=== PATIENT | female | born 1945 | race Caucasian/White ===

== ENCOUNTER 2017-07-31 14:19 | Inpatient (IN) | payer OTHER, MEDICARE ==
[~2017-07-31] VITALS: Ht 160 cm; Wt 59.4 kg
[2017-07-31] MEDS ORDERED: InsuLIN R (HUMAN) 100 UNITS in SODIUM CHL 0.9% 99 ML IV SCH ×9 (15:23→17:21)
[2017-07-31] MEDS: D5W/SOD CHL 0.45%/KCL 20MEQ 1,000 ML IV SCH ×4 (15:23→22:03)
[2017-07-31] MEDS ORDERED: POTASSIUM CHL 20MEQ/50ML 50 ML IV PRN (15:30)
[2017-07-31] MEDS ORDERED: POTASSIUM CHL 10MEQ/100ML 300 ML IV PRN (15:30)
[2017-07-31] MEDS ORDERED: POTASSIUM CHL 20MEQ/50ML 100 ML IV PRN (15:30)
[2017-07-31] MEDS ORDERED: InsuLIN REG 1unit/0.01ml Soln (100units/ml) SC PRN (15:30)
[2017-07-31] MEDS ORDERED: MAGNESIUM SULFATE 1GM/100ML 200 ML IV ONE (15:30)
[2017-07-31] MEDS: SODIUM CHLORIDE 0.9% 1,000 ML IV SCH ×3 (15:43→23:21)
[2017-07-31 16:27] LABS: Albumin 4.5 g/dL (3.4-5.0); Bilirubin, Total 0.4 mg/dL (0.2-1.0); Calcium 8.8 mg/dL (8.5-10.1); Potassium 4.6 mmol/L (3.5-5.1); Total Protein 7.6 g/dL (6.4-8.2)
[2017-07-31] MEDS ORDERED: ACCU-CHEK COMFORT CURVE STRIP VI SCH ×2 (16:30→18:00)
[2017-07-31] MEDS ORDERED: MET50T PO (16:36)
[2017-07-31] MEDS ORDERED: LOSA25TA9 PO (16:36)
[2017-07-31] MEDS ORDERED: SIMV-8 PO (16:36)
[2017-07-31] MEDS ORDERED: METF-370 PO (16:36)
[2017-07-31] MEDS ORDERED: LEVO137T3 PO (16:36)
[2017-07-31] MEDS ORDERED: OMEP20CA74 PO (16:37)
[2017-07-31] MEDS ORDERED: ASPI-231 PO (16:37)
[2017-07-31 16:54] LABS: Urine Bacteria FEW /hpf (None Seen); Urine Blood TRACE /uL (Negative); Urine Specific Gravity 1.022 (1.001-1.035); Urine WBC 1 /hpf (0 - 5)
[2017-07-31] MEDS ORDERED: InsuLIN REG 1unit/0.01ml Soln (100units/ml) SC SCH ×4 (17:00→22:00)
[2017-07-31] MEDS: SOD CHL 0.9%/ KCL 20MEQ 1,000 ML IV SCH ×2 (17:12→22:03)
[2017-07-31] MEDS ORDERED: ONDANSETRON HCL 4 MG/2 ML VIAL IV PRN (17:30)
[2017-07-31] MEDS ORDERED: DEXTROSE (50%) 50ML SYRG IV PRN (17:30)
[2017-07-31] MEDS ORDERED: NITROGLYCERIN 0.4 MG SL TAB SL PRN (17:30)
[2017-07-31] MEDS ORDERED: MORPHINE SULFATE 10 MG/ML INJ 1ML SDV IV PRN (17:30)
[2017-07-31] MEDS ORDERED: PANTOPRAZOLE 40 MG/10 ML VIAL IV ONE (17:30)
[2017-07-31 17:56] LABS: Hematocrit 48.5 % (36.0-46.0); Hemoglobin 14.8 g/dL (12.2-16.2); Mean Corpuscular Hemoglobin 28.1 pg (28.0-32.0); Mean Corpuscular Hgb Conc. 30.4 g/dL (32.0-36.0); Mean Corpuscular Volume 92.5 fL (80.0-100.0); Red Blood Cells 5.24 10^6/uL (4.0-5.20); Red Cell Distribution Width 15.4 % (11.8-14.3)
[2017-07-31 17:57] LABS: Platelet Count (auto) 597 10^3/uL (140-450)
[2017-07-31 17:58] LABS: Band Neutrophils % (manual) 0; Basophils % (manual) 0 (0.0-2.0); Blast Cells 0; Eosinophils % (manual) 0 (0-7); Metamyelocytes % 0; Myelocytes % 0; Promyelocytes % 0; Reactive Lymphocytes 0
[2017-07-31] MEDS ORDERED: SODIUM BICARBONATE 8.4 % INJ 50ML VIAL IV ONE ×3 (18:03→22:15)
[2017-07-31] MEDS: ACCU-CHEK COMFORT CURVE STRIP VI SCH ×4 (18:11→22:45)
[2017-07-31] MEDS ORDERED: SODIUM BICARBONATE 50ML VIAL 50 ML in SOD CHL 0.45% 1,000 ML IV ONE (18:30)
[2017-07-31] MEDS ORDERED: SODIUM CHLORIDE 0.9% 1,000 ML IV SCH ×3 (19:23→21:23)
[2017-07-31 20:19] LABS: BUN/Creatinine Ratio 15.2; Calcium 7.7 mg/dL (8.5-10.1); Potassium 4.4 mmol/L (3.5-5.1)
[2017-07-31] MEDS: InsuLIN R (HUMAN) 100 UNITS in SODIUM CHL 0.9% 99 ML IV SCH ×2 (20:22→22:30)
[2017-07-31 20:35] LABS: Lymphocytes % (manual) 15 (10.0-50.0); Monocytes % (manual) 10 (0-12)
[2017-07-31] MEDS: METOPROLOL TARTRATE 25 MG TAB PO SCH (22:00)
[2017-07-31] MEDS ORDERED: POTASSIUM CHL 10MEQ/100ML 100 ML IV PRN (23:30)
[2017-08-01] MEDS: InsuLIN R (HUMAN) 100 UNITS in SODIUM CHL 0.9% 99 ML IV SCH ×4 (00:54→07:04)
[2017-08-01] MEDS: ACCU-CHEK COMFORT CURVE STRIP VI SCH ×16 (01:30→22:36)
[2017-08-01] MEDS: D5W/SOD CHL 0.45%/KCL 20MEQ 1,000 ML IV SCH ×5 (03:17→11:21)
[2017-08-01] MEDS: SOD CHL 0.9%/ KCL 20MEQ 1,000 ML IV SCH (04:43)
[2017-08-01 07:24] LABS: Basophils # (auto) 0 uL; Basophils % (auto) 0.2 % (0.0-2.0); Eosinophils # (auto) 0 uL; Eosinophils % (auto) 0.3 % (0.0-7.0); Hematocrit 38.2 % (36.0-46.0); Hemoglobin 12.9 g/dL (12.2-16.2); Lymphocytes # (auto) 1.7 uL; Lymphocytes % (auto) 9.5 % (10.0-50.0); Mean Corpuscular Hemoglobin 28.2 pg (28.0-32.0); Mean Corpuscular Hgb Conc. 33.7 g/dL (32.0-36.0); Mean Corpuscular Volume 83.9 fL (80.0-100.0); Monocytes # (auto) 1.8 uL; Monocytes % (auto) 10.1 % (0.0-12.0); Neutrophils % (auto) 79.9 % (37.0-80.0); Platelet Count (auto) 277 10^3/uL (140-450); Red Blood Cells 4.55 10^6/uL (4.0-5.20); Red Cell Distribution Width 14.1 % (11.8-14.3); White Blood Cell 17.6 10^3/uL (4.4-10.8)
[2017-08-01 07:30] LABS: Albumin 3.4 g/dL (3.4-5.0); Bilirubin, Total 0.6 mg/dL (0.2-1.0); Calcium 7.4 mg/dL (8.5-10.1); Potassium 3.4 mmol/L (3.5-5.1); Total Protein 5.9 g/dL (6.4-8.2)
[2017-08-01] MEDS: SODIUM CHLORIDE 0.9% 1,000 ML IV SCH ×2 (08:36→12:41)
[2017-08-01] MEDS: LEVOTHYROXINE SODIUM 112 MCG TAB PO SCH (08:43)
[2017-08-01] MEDS: LEVOTHYROXINE SODIUM 25 MCG TAB PO SCH (08:43)
[2017-08-01] MEDS: PANTOPRAZOLE 40 MG/10 ML VIAL IV SCH (09:52)
[2017-08-01] MEDS: METOPROLOL TARTRATE 25 MG TAB PO SCH ×2 (09:53→22:34)
[2017-08-01] MEDS ORDERED: INSULIN DETEMIR(LEVEMIR) 1unit/0.01ml Soln (100units/ml) SC ONE (13:45)
[2017-08-01] MEDS ORDERED: ACETAMINOPHEN 500 MG TAB PO PRN (13:45)
[2017-08-01] MEDS ORDERED: SODIUM BICARBONATE 50ML VIAL 50 ML in SOD CHL 0.45% 1,000 ML IV SCH (13:45)
[2017-08-01] MEDS ORDERED: POTASSIUM CHL 20 Meq TABLET PO ONE ×2 (13:45→19:45)
[2017-08-01 18:46] LABS: BUN/Creatinine Ratio 12.7; Calcium 8.1 mg/dL (8.5-10.1)
[2017-08-01 18:51] LABS: Potassium 2.8 mmol/L (3.5-5.1)
[2017-08-01] MEDS: POTASSIUM CHL 20MEQ/50ML 50 ML IV SCH ×2 (19:45→22:16)
[2017-08-01] MEDS ORDERED: SOD CHL 0.9%/ KCL 40MEQ 1,000 ML IV ONE (19:45)
[2017-08-01] MEDS: INSULIN DETEMIR(LEVEMIR) 1unit/0.01ml Soln (100units/ml) SC SCH (22:34)
[2017-08-01] MEDS ORDERED: NITROGLYCERIN 0.4 MG SL TAB SL PRN (23:45)
[2017-08-01] MEDS ORDERED: MORPHINE SULFATE 10 MG/ML INJ 1ML SDV IV PRN (23:45)
[2017-08-01] MEDS ORDERED: DEXTROSE (50%) 50ML SYRG IV PRN (23:45)
[2017-08-02] VITALS (9 sets, daily range): BP systolic 123–140; BP diastolic 55–83
[2017-08-02] MEDS: ACCU-CHEK COMFORT CURVE STRIP VI SCH ×6 (00:38→20:26)
[2017-08-02] MEDS: InsuLIN REG 1unit/0.01ml Soln (100units/ml) SC SCH ×6 (00:38→20:26)
[2017-08-02 06:24] LABS: Basophils # (auto) 0 uL; Basophils % (auto) 0.4 % (0.0-2.0); Eosinophils # (auto) 0.3 uL; Eosinophils % (auto) 2.2 % (0.0-7.0); Hematocrit 35.6 % (36.0-46.0); Hemoglobin 12.2 g/dL (12.2-16.2); Lymphocytes # (auto) 1.4 uL; Lymphocytes % (auto) 12.4 % (10.0-50.0); Mean Corpuscular Hemoglobin 28.3 pg (28.0-32.0); Mean Corpuscular Hgb Conc. 34.2 g/dL (32.0-36.0); Mean Corpuscular Volume 82.7 fL (80.0-100.0); Monocytes % (auto) 8.8 % (0.0-12.0); Neutrophils # (auto) 8.8 uL; Neutrophils % (auto) 76.2 % (37.0-80.0); Platelet Count (auto) 235 10^3/uL (140-450); Red Cell Distribution Width 13.8 % (11.8-14.3); White Blood Cell 11.6 10^3/uL (4.4-10.8)
[2017-08-02] MEDS: LEVOTHYROXINE SODIUM 25 MCG TAB PO SCH (06:46)
[2017-08-02] MEDS: LEVOTHYROXINE SODIUM 112 MCG TAB PO SCH (06:46)
[2017-08-02 06:52] LABS: Calcium 8.5 mg/dL (8.5-10.1); Magnesium 1.9 mg/dL (1.6-2.6); Potassium 3.7 mmol/L (3.5-5.1)
[2017-08-02 06:57] LABS: BUN/Creatinine Ratio 11.5
[2017-08-02] MEDS: METOPROLOL TARTRATE 25 MG TAB PO SCH ×2 (10:20→22:22)
[2017-08-02] MEDS: PANTOPRAZOLE 40 MG/10 ML VIAL IV SCH (10:20)
[2017-08-02] MEDS: INSULIN DETEMIR(LEVEMIR) 1unit/0.01ml Soln (100units/ml) SC SCH ×2 (10:35→22:23)
[2017-08-02] MEDS ORDERED: GABAPENTIN 300 MG CAP PO ONE (14:45)
[2017-08-02] MEDS ORDERED: POTASSIUM PHOSPHATE 22 MEQ in SODIUM CHL 0.9% 100 ML IV ONE (14:45)
[2017-08-02] MEDS: Boost Glucose Control 8 Ounces PO SCH (18:07)
[2017-08-03] MEDS: ACCU-CHEK COMFORT CURVE STRIP VI SCH ×3 (00:03→08:00)
[2017-08-03] MEDS: InsuLIN REG 1unit/0.01ml Soln (100units/ml) SC SCH ×3 (04:00→08:00)
[2017-08-03 05:00] VITALS: BP 148/75
[2017-08-03] MEDS: LEVOTHYROXINE SODIUM 25 MCG TAB PO SCH (06:24)
[2017-08-03] MEDS: LEVOTHYROXINE SODIUM 112 MCG TAB PO SCH (06:24)
[2017-08-03 06:53] LABS: Calcium 9.1 mg/dL (8.5-10.1); Potassium 3.3 mmol/L (3.5-5.1)
[2017-08-03 09:00] VITALS: BP 159/73
[2017-08-03] MEDS: PANTOPRAZOLE 40 MG/10 ML VIAL IV SCH (09:53)
[2017-08-03] MEDS: Boost Glucose Control 8 Ounces PO SCH (09:53)
[2017-08-03] MEDS: INSULIN DETEMIR(LEVEMIR) 1unit/0.01ml Soln (100units/ml) SC SCH (09:54)
[2017-08-03] MEDS: METOPROLOL TARTRATE 25 MG TAB PO SCH (09:54)
[2017-08-03] MEDS ORDERED: POTASSIUM CHL 20 Meq TABLET PO ONE (10:15)
== END 2017-08-03 12:00 | disposition home or self-care (01) | DRG 637 ==
LOC: ER 14:19 → TELE 14:20 → TELE-WESTW 08-02 02:13
PROVIDERS: ADMIT Internal Medicine; ATTEND Internal Medicine
DX: E11.10 Type 2 diabetes mellitus with ketoacidosis without coma (principal); G92 Toxic encephalopathy; N17.9 Acute kidney failure, unspecified; R65.10 Systemic inflammatory response syndrome (SIRS) of non-infectious origin without acute organ dysfunction; E78.5 Hyperlipidemia, unspecified; F03.90 Unspecified dementia, unspecified severity, without behavioral disturbance, psychotic disturbance, mood disturbance, and anxiety; I10 Essential (primary) hypertension; E03.9 Hypothyroidism, unspecified; Z90.710 Acquired absence of both cervix and uterus; Z98.49 Cataract extraction status, unspecified eye; Z79.899 Other long term (current) drug therapy; Z79.82 Long term (current) use of aspirin
CPT/HCPCS: 36415; 36600; 51702; 71045; 80048; 80053; 81001; 82010; 82805; 82962; 83036; 83735; 83930; 84100; 84443; 85007; 85025; 85027; 93005; 96365; 97163; 99291; C9113; J1815; J2405

== ENCOUNTER 2017-11-18 19:41 | Inpatient (IN) | payer MEDICARE, OTHER ==
[~2017-11-18] VITALS: Ht 162.6 cm; Wt 62.7 kg
[~2017-11-18 19:41] MED LIST: ASPI-231 PO; LEVO137T3 PO; LOSA25TA9 PO; MET50T PO; METF-370 PO; OMEP20CA74 PO; SIMV-8 PO
[2017-11-18] MEDS ORDERED: MIDAZOLAM DRIP 50 mg/50mL 50 ML IV ONE (20:07)
[2017-11-18] MEDS ORDERED: SUCCINYLCHOLINE CHLORIDE 20 MG/ML 10ML VIAL IV ONE ×5 (20:08→20:30)
[2017-11-18] MEDS ORDERED: ETOMIDATE (2MG/ML) 20ML VIAL IV ONE ×2 (20:08→20:15)
[2017-11-18] MEDS ORDERED: SODIUM BICARBONATE 8.4 % INJ 50ML VIAL IV ONE ×2 (20:15→21:00)
[2017-11-18] MEDS ORDERED: InsuLIN REG 1unit/0.01ml Soln (100units/ml) IV ONE (20:15)
[2017-11-18 20:23] LABS: Hemoglobin 11.8 g/dL (12.2-16.2)
[2017-11-18 20:26] LABS: Hematocrit 41.9 % (36.0-46.0); Mean Corpuscular Hemoglobin 27.6 pg (28.0-32.0); Mean Corpuscular Hgb Conc. 28.3 g/dL (32.0-36.0); Mean Corpuscular Volume 97.6 fL (80.0-100.0); Platelet Count (auto) 551 10^3/uL (140-450); Red Blood Cells 4.29 10^6/uL (4.0-5.20); Red Cell Distribution Width 15.3 % (11.8-14.3)
[2017-11-18 20:34] LABS: INR 0.98 (0.9-1.15); Partial Thromboplastin Time 34.3 sec (22.64-33.71); Prothrombin Time 10.7 sec (9.37-12.3)
[2017-11-18] MEDS: MIDAZOLAM DRIP 50 mg/50mL 50 ML IV SCH (20:35)
[2017-11-18 20:49] LABS: Alanine Aminotransferase 11 U/L (13-56); Albumin 2.8 g/dL (3.4-5.0); Alkaline Phosphatase 165 U/L (45-117); Anion Gap 30 (5-15); Aspartate Aminotransferase 12 U/L (15-37); BUN/Creatinine Ratio 15.9; Bilirubin, Total 0.4 mg/dL (0.2-1.0); Blood Urea Nitrogen 33 mg/dL (7-18); Chloride 104 mmol/L (98-107); GFR African American 30 mL/min; GFR Non-African American 25 mL/min; Sodium 138 mmol/L (136-145); Total Protein 6.1 g/dL (6.4-8.2)
[2017-11-18] MEDS: ETOMIDATE (2MG/ML) 20ML VIAL IV ONE ×2 (20:49→20:51)
[2017-11-18 20:53] LABS: Carbon Dioxide 4 mmol/L (21-32); Glucose 926 mg/dL (74-106); Potassium 6.7 mmol/L (3.5-5.1)
[2017-11-18 21:00] LABS: White Blood Cell 57.5 10^3/uL (4.4-10.8)
[2017-11-18] MEDS: ACCU-CHEK COMFORT CURVE STRIP VI SCH ×2 (21:00→22:30)
[2017-11-18] MEDS ORDERED: DEXTROSE (50%) 50ML SYRG IV PRN (21:00)
[2017-11-18] MEDS ORDERED: CALCIUM GLUC 4.65meq/50ml D5AE 50 ML IV ONE (21:00)
[2017-11-18 21:01] LABS: Basophils % (manual) 0 (0.0-2.0); Blast Cells 0; Myelocytes % 0; Promyelocytes % 0
[2017-11-18 21:21] LABS: Band Neutrophils % (manual) 12; Eosinophils % (manual) 0 (0-7); Lymphocytes % (manual) 5 (10.0-50.0); Monocytes % (manual) 4 (0-12)
[2017-11-18 21:22] LABS: Metamyelocytes % 3; Reactive Lymphocytes 3
[2017-11-18 21:30] LABS: Lactic Acid w/Reflex 3.1 mmol/L (0.4-2.0)
[2017-11-18] MEDS: InsuLIN R (HUMAN) 100 UNITS in SODIUM CHL 0.9% 99 ML IV SCH (22:00)
[2017-11-18 22:09] VITALS: BP 108/49
[2017-11-18] MEDS ORDERED: fentaNYL Drip 2500mCg/250mlNS 250 ML IV SCH (22:55)
[2017-11-18] MEDS ORDERED: NOREPINEPHRINE 16 MG/500ML KIT 500 ML IV SCH (23:45)
[2017-11-19] VITALS (76 sets, daily range): BP systolic 88–159; BP diastolic 36–84
[2017-11-19] MEDS ORDERED: LEVOFLOXACIN 750MG 150 ML IV ONE
[2017-11-19] MEDS: ACCU-CHEK COMFORT CURVE STRIP VI SCH ×14 (00:14→22:33)
[2017-11-19] MEDS ORDERED: DEXTROSE (50%) 50ML SYRG IV PRN ×2 (00:15→19:30)
[2017-11-19] MEDS: SODIUM CHLORIDE 0.9% 1,000 ML IV SCH ×2 (00:30→02:14)
[2017-11-19] MEDS ORDERED: LORazepam 2MG/ML-1ML VIAL IV PRN (02:30)
[2017-11-19] MEDS ORDERED: ONDANSETRON HCL 4 MG/2 ML VIAL IV PRN (02:30)
[2017-11-19] MEDS ORDERED: NOREPINEPHRINE 16 MG/500ML KIT 500 ML IV PRN (03:15)
[2017-11-19] MEDS ORDERED: ACETAMINOPHEN 120 MG RECT SUPP PR ONE (03:17)
[2017-11-19] MEDS ORDERED: SODIUM CHLORIDE 0.9% 1,000 ML IV SCH ×2 (04:14→06:14)
[2017-11-19] MEDS: fentaNYL Drip 2500mCg/250mlNS 250 ML IV PRN (04:20)
[2017-11-19 04:31] LABS: Urine Blood 2+ /uL (Negative); Urine Specific Gravity 1.016 (1.001-1.035); Urine WBC <1 /hpf (0 - 5)
[2017-11-19 04:32] LABS: Urine Bacteria MOD /hpf (None Seen); Urine Hyaline Cast MOD /lpf (0 - 2)
[2017-11-19] MEDS: ACETAMINOPHEN 500 MG TAB PO PRN ×2 (04:32→18:39)
[2017-11-19] MEDS: PIPERACILLIN-TAZOB 2.25GM 50 ML IV SCH ×4 (06:21→23:42)
[2017-11-19] MEDS: MIDAZOLAM DRIP 50 mg/50mL 50 ML IV SCH (07:42)
[2017-11-19 08:11] LABS: BUN/Creatinine Ratio 15.9; Potassium 3.6 mmol/L (3.5-5.1)
[2017-11-19] MEDS: NOREPINEPHRINE 8 MG/250ML KIT 250 ML IV SCH (08:25)
[2017-11-19] MEDS ORDERED: LEVOTHYROXINE SODIUM 25 MCG TAB PO SCH ×2 (10:00→11:00)
[2017-11-19] MEDS ORDERED: LEVOTHYROXINE SODIUM 112 MCG TAB PO SCH (10:00)
[2017-11-19 10:22] LABS: Hematocrit 36.6 % (36.0-46.0); Hemoglobin 11.9 g/dL (12.2-16.2); Mean Corpuscular Hemoglobin 27.3 pg (28.0-32.0); Mean Corpuscular Hgb Conc. 32.5 g/dL (32.0-36.0); Mean Corpuscular Volume 83.7 fL (80.0-100.0); Platelet Count (auto) 292 10^3/uL (140-450); Red Blood Cells 4.38 10^6/uL (4.0-5.20); Red Cell Distribution Width 13.6 % (11.8-14.3)
[2017-11-19 10:39] LABS: Albumin 2.5 g/dL (3.4-5.0); BUN/Creatinine Ratio 16.4; Bilirubin, Total 0.3 mg/dL (0.2-1.0); Calcium 7.9 mg/dL (8.5-10.1); Potassium 3.5 mmol/L (3.5-5.1); Total Protein 5.6 g/dL (6.4-8.2)
[2017-11-19 10:41] LABS: Basophils % (manual) 0 (0.0-2.0); Blast Cells 0; Eosinophils % (manual) 0 (0-7); Metamyelocytes % 0; Myelocytes % 0; Promyelocytes % 0; Reactive Lymphocytes 0
[2017-11-19] MEDS: LEVOTHYROXINE SODIUM 112 MCG TAB PO SCH (11:28)
[2017-11-19] MEDS ORDERED: AZITHROMYCIN 500MG/ 250ML 250 ML IV ONE (11:45)
[2017-11-19] MEDS ORDERED: PANTOPRAZOLE 40 MG/10 ML VIAL IV ONE (11:45)
[2017-11-19 11:47] LABS: Band Neutrophils % (manual) 8; Lymphocytes % (manual) 3 (10.0-50.0); Monocytes % (manual) 9 (0-12)
[2017-11-19] MEDS ORDERED: POTASSIUM PHOSPHATE 44 MEQ in D5W 5% 250 ML IV ONE (12:00)
[2017-11-19] MEDS: SOD CHL 0.45% 1,000 ML IV SCH ×2 (12:05→21:45)
[2017-11-19] MEDS: FREE WATER GT SCH ×3 (12:13→22:32)
[2017-11-19] MEDS: InsuLIN R (HUMAN) 100 UNITS in SODIUM CHL 0.9% 99 ML IV SCH (13:52)
[2017-11-19] MEDS ORDERED: INSULIN NPH Isophane (HUMAN) 1unit/0.01ml Susp(100units/ml) SC ONE (15:00)
[2017-11-19 15:05] LABS: BUN/Creatinine Ratio 16.3; Calcium 7.7 mg/dL (8.5-10.1); Potassium 3.9 mmol/L (3.5-5.1)
[2017-11-19] MEDS ORDERED: INSU1INJ4 SC ×2 (15:29)
[2017-11-19] MEDS ORDERED: LINEZOLID 600MG/300ML 300 ML IV SCH (22:00)
[2017-11-19] MEDS: HEPARIN SODIUM (PORCINE) 5000 UNITS/ML 1ML VIAL SC SCH (22:32)
[2017-11-19] MEDS: InsuLIN REG 1unit/0.01ml Soln (100units/ml) SC SCH (22:33)
[2017-11-20] VITALS (107 sets, daily range): BP systolic 88–194; BP diastolic 46–107
[2017-11-20] MEDS: FREE WATER GT SCH ×6 (02:10→22:25)
[2017-11-20] MEDS: InsuLIN REG 1unit/0.01ml Soln (100units/ml) SC SCH ×6 (02:10→22:25)
[2017-11-20] MEDS: ACCU-CHEK COMFORT CURVE STRIP VI SCH ×6 (02:10→22:25)
[2017-11-20 03:51] LABS: Basophils # (auto) 0.1 uL; Eosinophils # (auto) 0.1 uL; Eosinophils % (auto) 0.4 % (0.0-7.0); Hematocrit 35.6 % (36.0-46.0); Lymphocytes # (auto) 0.7 uL; Lymphocytes % (auto) 4.7 % (10.0-50.0); Mean Corpuscular Hemoglobin 27.9 pg (28.0-32.0); Mean Corpuscular Hgb Conc. 33.8 g/dL (32.0-36.0); Mean Corpuscular Volume 82.6 fL (80.0-100.0); Monocytes # (auto) 1.8 uL; Monocytes % (auto) 12.7 % (0.0-12.0); Neutrophils # (auto) 11.8 uL; Neutrophils % (auto) 81.2 % (37.0-80.0); Platelet Count (auto) 226 10^3/uL (140-450); Red Cell Distribution Width 14.1 % (11.8-14.3); White Blood Cell 14.5 10^3/uL (4.4-10.8)
[2017-11-20] MEDS: INSULIN NPH Isophane (HUMAN) 1unit/0.01ml Susp(100units/ml) SC SCH ×2 (04:02→22:25)
[2017-11-20 04:10] LABS: Albumin 2.3 g/dL (3.4-5.0); BUN/Creatinine Ratio 16.1; Bilirubin, Total 0.2 mg/dL (0.2-1.0); Calcium 7.7 mg/dL (8.5-10.1); Potassium 3.5 mmol/L (3.5-5.1); Total Protein 5.7 g/dL (6.4-8.2)
[2017-11-20] MEDS: PIPERACILLIN-TAZOB 2.25GM 50 ML IV SCH ×3 (06:14→18:30)
[2017-11-20] MEDS: LEVOTHYROXINE SODIUM 112 MCG TAB PO SCH (06:14)
[2017-11-20] MEDS ORDERED: LORazepam 2MG/ML-1ML VIAL ONE (09:19)
[2017-11-20] MEDS: NOREPINEPHRINE 8 MG/250ML KIT 250 ML IV SCH (09:22)
[2017-11-20] MEDS: AZITHROMYCIN 500MG/ 250ML 250 ML IV SCH (09:23)
[2017-11-20] MEDS ORDERED: LORazepam 2MG/ML-1ML VIAL IV PRN (09:30)
[2017-11-20] MEDS: ACETAMINOPHEN 500 MG TAB PO PRN ×2 (09:30→22:25)
[2017-11-20] MEDS ORDERED: INSULIN NPH Isophane (HUMAN) 1unit/0.01ml Susp(100units/ml) SC SCH (10:00)
[2017-11-20] MEDS ORDERED: AZITHROMYCIN 500MG/ 250ML 250 ML IV SCH (10:00)
[2017-11-20] MEDS: SOD CHL 0.45% 1,000 ML IV SCH ×2 (10:17→14:00)
[2017-11-20] MEDS: POTASSIUM CHL 10% (20 MEQ/15ML) 15ml ORAL SOLN GT SCH (11:01)
[2017-11-20] MEDS: PANTOPRAZOLE 40 MG/10 ML VIAL IV SCH (11:01)
[2017-11-20] MEDS: HEPARIN SODIUM (PORCINE) 5000 UNITS/ML 1ML VIAL SC SCH ×2 (11:03→22:25)
[2017-11-20] MEDS: LINEZOLID 600MG/300ML 300 ML IV SCH ×2 (11:03→22:25)
[2017-11-20] MEDS: METOPROLOL TARTRATE 25 MG TAB PO SCH ×2 (11:04→22:25)
[2017-11-20] MEDS: MAGNESIUM SULFATE 1GM/100ML 100 ML IV SCH ×2 (14:41→16:00)
[2017-11-20] MEDS: MIDAZOLAM DRIP 50 mg/50mL 50 ML IV SCH (20:14)
[2017-11-21] VITALS (89 sets, daily range): BP systolic 91–198; BP diastolic 43–115
[2017-11-21] MEDS: PIPERACILLIN-TAZOB 2.25GM 50 ML IV SCH ×4 (00:15→19:30)
[2017-11-21] MEDS: MIDAZOLAM DRIP 50 mg/50mL 50 ML IV SCH ×2 (00:15→15:00)
[2017-11-21] MEDS: FREE WATER GT SCH ×5 (02:00→18:00)
[2017-11-21] MEDS: ACCU-CHEK COMFORT CURVE STRIP VI SCH ×5 (02:00→18:00)
[2017-11-21] MEDS: InsuLIN REG 1unit/0.01ml Soln (100units/ml) SC SCH ×5 (02:00→18:00)
[2017-11-21 03:45] LABS: Basophils # (auto) 0.1 uL; Basophils % (auto) 0.6 % (0.0-2.0); Eosinophils # (auto) 0.1 uL; Eosinophils % (auto) 0.4 % (0.0-7.0); Hematocrit 33.1 % (36.0-46.0); Lymphocytes # (auto) 1.2 uL; Lymphocytes % (auto) 9.2 % (10.0-50.0); Mean Corpuscular Hemoglobin 27.6 pg (28.0-32.0); Mean Corpuscular Hgb Conc. 33.3 g/dL (32.0-36.0); Mean Corpuscular Volume 82.9 fL (80.0-100.0); Monocytes % (auto) 8.3 % (0.0-12.0); Neutrophils # (auto) 10.3 uL; Neutrophils % (auto) 81.5 % (37.0-80.0); Platelet Count (auto) 241 10^3/uL (140-450); Red Blood Cells 3.99 10^6/uL (4.0-5.20); Red Cell Distribution Width 14.1 % (11.8-14.3); White Blood Cell 12.6 10^3/uL (4.4-10.8)
[2017-11-21] MEDS: SOD CHL 0.45% 1,000 ML IV SCH (03:45)
[2017-11-21 04:04] LABS: BUN/Creatinine Ratio 17.4; Calcium 7.5 mg/dL (8.5-10.1); Phosphorus 3.7 mg/dL (2.5-4.90); Potassium 3.4 mmol/L (3.5-5.1)
[2017-11-21] MEDS: LEVOTHYROXINE SODIUM 112 MCG TAB PO SCH (06:41)
[2017-11-21] MEDS: ACETAMINOPHEN 500 MG TAB PO PRN (06:55)
[2017-11-21] MEDS: NOREPINEPHRINE 8 MG/250ML KIT 250 ML IV SCH (07:15)
[2017-11-21] MEDS ORDERED: Diabetisource AC 1 Liter GT SCH (11:15)
[2017-11-21] MEDS ORDERED: FLUCONAZOLE 200MG/100ML 100 ML IV ONE (11:15)
[2017-11-21] MEDS ORDERED: SOD CHL 0.45% 1,000 ML IV SCH (11:15)
[2017-11-21] MEDS: LINEZOLID 600MG/300ML 300 ML IV SCH (11:27)
[2017-11-21] MEDS: POTASSIUM CHL 10% (20 MEQ/15ML) 15ml ORAL SOLN GT SCH (11:28)
[2017-11-21] MEDS: PANTOPRAZOLE 40 MG/10 ML VIAL IV SCH (11:28)
[2017-11-21] MEDS: METOPROLOL TARTRATE 25 MG TAB PO SCH (11:56)
[2017-11-21] MEDS: HEPARIN SODIUM (PORCINE) 5000 UNITS/ML 1ML VIAL SC SCH (11:57)
[2017-11-21] MEDS: AZITHROMYCIN 500MG/ 250ML 250 ML IV SCH (14:30)
[2017-11-21] MEDS: fentaNYL Drip 2500mCg/250mlNS 250 ML IV PRN (15:30)
[2017-11-21] MEDS ORDERED: INSULIN NPH Isophane (HUMAN) 1unit/0.01ml Susp(100units/ml) SC SCH (22:00)
[2017-11-21] MEDS ORDERED: SODIUM CHLOR 0.9% PF (SALINE LOCK) 10ML VIAL/SYR IV SCH (22:00)
[2017-11-22] MEDS ORDERED: INSULIN NPH Isophane (HUMAN) 1unit/0.01ml Susp(100units/ml) SC SCH (10:00)
[2017-11-22] MEDS ORDERED: FLUCONAZOLE 200MG/100ML 100 ML IV SCH (10:00)
== END 2017-11-21 23:15 | disposition short-term general hospital (02) | DRG 871 ==
LOC: EDBD 19:41 → ER 19:45 → OVERFLOW 19:46 → ICU WEST 11-19 03:52
PROVIDERS: ADMIT Nurse Practitioner Family; ATTEND Internal Medicine
PROC: 5A1945Z Respiratory Ventilation, 24-96 Consecutive Hours (ICD-10-PCS; principal; 2017-11-18)
PROC: 0BH17EZ Insertion of Endotracheal Airway into Trachea, Via Natural or Artificial Opening (ICD-10-PCS; 2017-11-18)
DX: A41.9 Sepsis, unspecified organism (principal); J96.01 Acute respiratory failure with hypoxia; N17.0 Acute kidney failure with tubular necrosis; G93.41 Metabolic encephalopathy; E11.10 Type 2 diabetes mellitus with ketoacidosis without coma; J18.1 Lobar pneumonia, unspecified organism; E03.9 Hypothyroidism, unspecified; R65.20 Severe sepsis without septic shock; E78.5 Hyperlipidemia, unspecified; F03.90 Unspecified dementia, unspecified severity, without behavioral disturbance, psychotic disturbance, mood disturbance, and anxiety; G40.409 Other generalized epilepsy and epileptic syndromes, not intractable, without status epilepticus; I10 Essential (primary) hypertension; K57.30 Diverticulosis of large intestine without perforation or abscess without bleeding; Z79.82 Long term (current) use of aspirin; Z79.84 Long term (current) use of oral hypoglycemic drugs; Z79.899 Other long term (current) drug therapy; Z90.710 Acquired absence of both cervix and uterus; Z81.8 Family history of other mental and behavioral disorders
CPT/HCPCS: 31500; 36415; 36569; 36600; 51702; 70450; 71045; 71250; 74176; 80048; 80053; 81001; 82010; 82805; 82962; 83036; 83605; 83735; 84100; 84443; 84484; 85007; 85025; 85027; 85610; 85730; 87040; 87070; 87081; 87086; 87205; 93005; 94002; 94003; 96365; 96367; 96375; 99291; C9113; G0378; J0330; J0610; J1450; J1815; J1956; J2250; J2543; J7060

== ENCOUNTER 2017-12-20 19:26 | Emergency (ER) | payer OTHER ==
[~2017-12-20] VITALS: Ht 162.6 cm; Wt 59.0 kg
[~2017-12-20 19:26] MED LIST changes: +INSU1INJ4 SC
[2017-12-20] MEDS ORDERED: SODIUM CHLORIDE 0.9% 1,000 ML IVB ONE (19:39)
[2017-12-20 20:26] LABS: Basophils # (auto) 0.1 uL; Basophils % (auto) 0.6 % (0.0-2.0); Eosinophils # (auto) 0.3 uL; Eosinophils % (auto) 1.5 % (0.0-7.0); Hematocrit 29.7 % (36.0-46.0); Hemoglobin 10.1 g/dL (12.2-16.2); Lymphocytes # (auto) 1.3 uL; Lymphocytes % (auto) 6.3 % (10.0-50.0); Mean Corpuscular Hemoglobin 27.6 pg (28.0-32.0); Mean Corpuscular Volume 81.3 fL (80.0-100.0); Monocytes # (auto) 1.5 uL; Monocytes % (auto) 7.2 % (0.0-12.0); Neutrophils # (auto) 17.4 uL; Neutrophils % (auto) 84.4 % (37.0-80.0); Nucleated Red Blood Cells % 0.1 %; Platelet Count (auto) 301 10^3/uL (140-450); Red Blood Cells 3.65 10^6/uL (4.0-5.20); Red Cell Distribution Width 16.6 % (11.8-14.3); White Blood Cell 20.7 10^3/uL (4.4-10.8)
[2017-12-20 20:40] LABS: Albumin 2.5 g/dL (3.4-5.0); Anion Gap 13 (5-15); Blood Urea Nitrogen 13 mg/dL (7-18); Calcium 8.1 mg/dL (8.5-10.1); Carbon Dioxide 25 mmol/L (21-32); Chloride 91 mmol/L (98-107); Glucose 264 mg/dL (74-106); Magnesium 1.4 mg/dL (1.6-2.6); Sodium 129 mmol/L (136-145)
[2017-12-20 20:41] LABS: Partial Thromboplastin Time 31.5 sec (23.78-33.04); Prothrombin Time 10.7 sec (9.27-12.13)
[2017-12-20 20:42] LABS: Alanine Aminotransferase 9 U/L (13-56); Aspartate Aminotransferase 9 U/L (15-37); BUN/Creatinine Ratio 8.7; Blood Alcohol < 3.0 mg/dL (0-5); GFR African American 44 mL/min; GFR Non-African American 36 mL/min
[2017-12-20] MEDS ORDERED: PIPERACILLIN-TAZOB 3.375GM 100 ML IV ONE (20:45)
[2017-12-20 20:47] LABS: Alkaline Phosphatase 92 U/L (45-117); Bilirubin, Total 0.7 mg/dL (0.2-1.0); Total Protein 6.1 g/dL (6.4-8.2)
[2017-12-20 20:50] LABS: Potassium 2.6 mmol/L (3.5-5.1)
[2017-12-20 22:34] LABS: Urine Amorphous Crystal FEW /hpf (None Seen); Urine Bacteria FEW /hpf (None Seen); Urine Blood Negative /uL (Negative); Urine Hyaline Cast FEW /lpf (0 - 2); Urine Specific Gravity 1.009 (1.001-1.035); Urine WBC 7 /hpf (0 - 5)
[2017-12-20] MEDS: POTASSIUM CHL 20MEQ/100ML 100 ML IV SCH (22:44)
[2017-12-20] MEDS ORDERED: CEFTRIAXONE SODIUM 2 GM in D5W 5% 50 ML IV ONE (23:00)
[2017-12-21] MEDS ORDERED: cefTRIAXone 1GM/10ml IVPUSH 20 ML IV ONE (00:29)
[2017-12-21] MEDS: POTASSIUM CHL 20MEQ/100ML 100 ML IV SCH (02:00)
[2017-12-21 04:14] VITALS: BP 161/75
== END 2017-12-21 04:44 | disposition home or self-care (01) ==
LOC: EDBD 19:26 → ER 19:26
DX: S09.90XA Unspecified injury of head, initial encounter (principal); N39.0 Urinary tract infection, site not specified; E87.6 Hypokalemia; E11.9 Type 2 diabetes mellitus without complications; Z86.73 Personal history of transient ischemic attack (TIA), and cerebral infarction without residual deficits; Z90.710 Acquired absence of both cervix and uterus; Z90.89 Acquired absence of other organs; Z79.4 Long term (current) use of insulin; Z79.899 Other long term (current) drug therapy; W19.XXXA Unspecified fall, initial encounter; Y93.89 Activity, other specified; Y99.8 Other external cause status; Y92.89 Other specified places as the place of occurrence of the external cause
CPT/HCPCS: 36415; 70450; 71045; 80053; 80320; 81001; 83605; 83735; 84484; 85025; 85610; 85730; 86141; 87040; 93005; J0696; J2543; J3480; J7030; 94761; 96365; 96366; 96367; J7060

== ENCOUNTER 2018-03-25 14:21 | Emergency (ER) | payer OTHER, MEDICARE ==
[~2018-03-25] VITALS: Ht 170.2 cm; Wt 59.0 kg
[~2018-03-25 14:21] MED LIST changes: +LOSA25TA40 PO; -LOSA25TA9 PO
[2018-03-25 15:10] LABS: Basophils # (auto) 0.1 uL; Basophils % (auto) 0.8 % (0.0-2.0); Eosinophils # (auto) 0.1 uL; Eosinophils % (auto) 0.3 % (0.0-7.0); Hematocrit 31.7 % (36.0-46.0); Hemoglobin 10.7 g/dL (12.2-16.2); Lymphocytes % (auto) 6.3 % (10.0-50.0); Mean Corpuscular Hgb Conc. 33.8 g/dL (32.0-36.0); Mean Corpuscular Volume 82.9 fL (80.0-100.0); Monocytes # (auto) 1.3 uL; Monocytes % (auto) 8.1 % (0.0-12.0); Neutrophils # (auto) 13.4 uL; Neutrophils % (auto) 84.5 % (37.0-80.0); Nucleated Red Blood Cells % 0.1 %; Platelet Count (auto) 448 10^3/uL (140-450); Red Blood Cells 3.82 10^6/uL (4.0-5.20); Red Cell Distribution Width 14.9 % (11.8-14.3); White Blood Cell 15.8 10^3/uL (4.4-10.8)
[2018-03-25 15:41] LABS: Albumin 2.8 g/dL (3.4-5.0); BUN/Creatinine Ratio 10.2; Bilirubin, Total 0.3 mg/dL (0.2-1.0); Calcium 7.6 mg/dL (8.5-10.1); Total Protein 5.6 g/dL (6.4-8.2)
[2018-03-25 15:46] LABS: Potassium 2.5 mmol/L (3.5-5.1)
[2018-03-25] MEDS: POTASSIUM EFFERVESENT TAB 25 MEQ PO ONE ×2 (16:00→16:31)
[2018-03-25] MEDS ORDERED: POTASSIUM CHL 20MEQ/100ML 100 ML IV ONE ×3 (16:00→18:00)
[2018-03-25 21:45] VITALS: BP 143/61
[2018-03-25] MEDS ORDERED: POTASSIUM EFFERVESENT TAB 25 MEQ PO ONE (22:30)
== END 2018-03-25 22:50 | disposition home or self-care (01) ==
LOC: EDUNIT# 14:21 → ER 14:21 → EDBD 14:21 → ER 22:50
DX: E11.649 Type 2 diabetes mellitus with hypoglycemia without coma (principal); E87.6 Hypokalemia; I10 Essential (primary) hypertension; E07.89 Other specified disorders of thyroid; Z86.73 Personal history of transient ischemic attack (TIA), and cerebral infarction without residual deficits; Z90.710 Acquired absence of both cervix and uterus; Z90.89 Acquired absence of other organs
CPT/HCPCS: 36415; 70450; 80053; 82962; 84484; 85025; 96365; 96366; 99285; J3480

== ENCOUNTER 2018-07-08 18:05 | Emergency (ER) | payer MEDICARE, OTHER ==
[~2018-07-08] VITALS: Ht 157.5 cm; Wt 52.2 kg
[2018-07-08 19:22] LABS: Basophils # (auto) 0 uL; Eosinophils # (auto) 0 uL; Lymphocytes # (auto) 1.3 uL; Monocytes # (auto) 0.7 uL; Nucleated Red Blood Cells % 0.1 %
[2018-07-08 19:24] LABS: Basophils % (auto) 0.1 % (0.0-2.0); Hematocrit 32.1 % (36.0-46.0); Hemoglobin 10.8 g/dL (12.2-16.2); Lymphocytes % (auto) 18.6 % (10.0-50.0); Mean Corpuscular Hemoglobin 27.8 pg (28.0-32.0); Mean Corpuscular Hgb Conc. 33.7 g/dL (32.0-36.0); Mean Corpuscular Volume 82.6 fL (80.0-100.0); Monocytes % (auto) 9.7 % (0.0-12.0); Neutrophils % (auto) 71.6 % (37.0-80.0); Platelet Count (auto) 463 10^3/uL (140-450); Red Blood Cells 3.88 10^6/uL (4.0-5.20); Red Cell Distribution Width 13.5 % (11.8-14.3)
[2018-07-08 19:39] LABS: Calcium 8.6 mg/dL (8.5-10.1); Potassium 4.3 mmol/L (3.5-5.1)
[2018-07-08 19:45] LABS: Albumin 3.5 g/dL (3.4-5.0); BUN/Creatinine Ratio 21.9; Bilirubin, Total 0.3 mg/dL (0.2-1.0); Total Protein 6.7 g/dL (6.4-8.2)
[2018-07-08] MEDS ORDERED: DEXTROSE (50%) 50ML SYRG IV ONE (20:00)
[2018-07-08] MEDS ORDERED: ONDANSETRON HCL 4 MG/2 ML VIAL IV ONE (20:15)
[2018-07-08] MEDS ORDERED: MORPHINE SULFATE 4 MG/ML SYR/VIAL IV ONE (20:15)
[2018-07-08 21:14] VITALS: BP 117/46
[2018-07-08 22:33] LABS: Urine Bacteria NONE SEEN /hpf (None Seen); Urine Blood Negative /uL (Negative); Urine WBC <1 /hpf (0 - 5)
== END 2018-07-09 00:06 | disposition home or self-care (01) ==
LOC: EDBD 18:05 → EDUNIT# 18:05 → ER 18:05
DX: S39.012A Strain of muscle, fascia and tendon of lower back, initial encounter (principal); S76.011A Strain of muscle, fascia and tendon of right hip, initial encounter; S76.911A Strain of unspecified muscles, fascia and tendons at thigh level, right thigh, initial encounter; E11.649 Type 2 diabetes mellitus with hypoglycemia without coma; I10 Essential (primary) hypertension; F12.10 Cannabis abuse, uncomplicated; Z86.73 Personal history of transient ischemic attack (TIA), and cerebral infarction without residual deficits; Z90.89 Acquired absence of other organs; Z90.710 Acquired absence of both cervix and uterus; Z88.6 Allergy status to analgesic agent; Z88.8 Allergy status to other drugs, medicaments and biological substances; Z79.4 Long term (current) use of insulin
CPT/HCPCS: 36415; 72131; 72192; 80053; 81001; 82962; 85025; 93005; 96374; 96375; 99284; J2270; J2405; J7042

== ENCOUNTER 2018-08-13 08:59 | Emergency (ER) | payer OTHER ==
[~2018-08-13] VITALS: Ht 162.6 cm; Wt 63.5 kg
[2018-08-13 10:43] LABS: Basophils # (auto) 0 uL; Basophils % (auto) 0.5 % (0.0-2.0); Eosinophils # (auto) 0 uL; Hematocrit 34.5 % (36.0-46.0); Hemoglobin 12.1 g/dL (12.2-16.2); Lymphocytes # (auto) 1.2 uL; Lymphocytes % (auto) 16.2 % (10.0-50.0); Mean Corpuscular Hemoglobin 27.5 pg (28.0-32.0); Mean Corpuscular Volume 78.6 fL (80.0-100.0); Monocytes # (auto) 0.4 uL; Monocytes % (auto) 5.1 % (0.0-12.0); Neutrophils # (auto) 5.8 uL; Neutrophils % (auto) 78.2 % (37.0-80.0); Nucleated Red Blood Cells % 0.1 %; Platelet Count (auto) 333 10^3/uL (140-450); Red Blood Cells 4.39 10^6/uL (4.0-5.20); Red Cell Distribution Width 14.7 % (11.8-14.3); White Blood Cell 7.4 10^3/uL (4.4-10.8)
[2018-08-13 11:02] LABS: Alanine Aminotransferase 140 U/L (13-56); Albumin 3.9 g/dL (3.4-5.0); Anion Gap 11 (5-15); Aspartate Aminotransferase 78 U/L (15-37); BUN/Creatinine Ratio 13.9; Blood Urea Nitrogen 19 mg/dL (7-18); Calcium 8.2 mg/dL (8.5-10.1); Carbon Dioxide 24 mmol/L (21-32); Chloride 97 mmol/L (98-107); GFR African American 48 mL/min; GFR Non-African American 40 mL/min; Glucose 161 mg/dL (74-106); Magnesium 1.5 mg/dL (1.6-2.6); Potassium 3.3 mmol/L (3.5-5.1); Sodium 132 mmol/L (136-145)
[2018-08-13 11:07] LABS: Alkaline Phosphatase 138 U/L (45-117); Bilirubin, Total 0.6 mg/dL (0.2-1.0); Total Protein 6.9 g/dL (6.4-8.2)
[2018-08-13] MEDS ORDERED: POTASSIUM CHL 20MEQ/100ML 100 ML IV ONE (12:15)
[2018-08-13 12:29] LABS: INR 0.97 (0.9-1.15); Prothrombin Time 10.4 sec (9.27-12.13)
[2018-08-13] MEDS ORDERED: MORPHINE SULFATE 4 MG/ML SYR/VIAL IV ONE (15:45)
[2018-08-13] MEDS ORDERED: LORazepam 2MG/ML-1ML VIAL IV ONE (15:45)
[2018-08-13 17:11] VITALS: BP 181/77
== END 2018-08-13 17:28 | disposition short-term general hospital (02) ==
LOC: ER 08:59 → EDBD 08:59 → ER 16:39
DX: S72.001A Fracture of unspecified part of neck of right femur, initial encounter for closed fracture (principal); K56.41 Fecal impaction; F12.10 Cannabis abuse, uncomplicated; E11.9 Type 2 diabetes mellitus without complications; I10 Essential (primary) hypertension; Z86.73 Personal history of transient ischemic attack (TIA), and cerebral infarction without residual deficits; Z90.89 Acquired absence of other organs; Z90.710 Acquired absence of both cervix and uterus; Z79.4 Long term (current) use of insulin; Z88.6 Allergy status to analgesic agent; Z88.8 Allergy status to other drugs, medicaments and biological substances; W01.0XXA Fall on same level from slipping, tripping and stumbling without subsequent striking against object, initial encounter; Y93.89 Activity, other specified; Y99.8 Other external cause status; Y92.89 Other specified places as the place of occurrence of the external cause
CPT/HCPCS: 36415; 51702; 73700; 80053; 82962; 83735; 84484; 85025; 85610; 85730; 93005; 94761; 96374; 96375; 99285; J2060; J2270; J3480; J7030

== ENCOUNTER 2019-02-04 18:46 | Emergency (ER) | payer OTHER ==
[~2019-02-04] VITALS: Ht 160 cm; Wt 59.0 kg
[~2019-02-04 18:46] MED LIST changes: +LOSA25TA38 PO; -LOSA25TA40 PO
[2019-02-04 20:11] LABS: Basophils # (auto) 0.1 uL; Eosinophils # (auto) 0 uL; Eosinophils % (auto) 0.1 % (0.0-7.0); Hematocrit 28.4 % (36.0-46.0); Hemoglobin 9.7 g/dL (12.2-16.2); Mean Corpuscular Hemoglobin 27.6 pg (28.0-32.0); Mean Corpuscular Volume 81.2 fL (80.0-100.0); Monocytes # (auto) 0.7 uL; Monocytes % (auto) 7.2 % (0.0-12.0); Neutrophils # (auto) 6.8 uL; Neutrophils % (auto) 70.7 % (37.0-80.0); Platelet Count (auto) 414 10^3/uL (140-450); Red Cell Distribution Width 14.8 % (11.8-14.3); White Blood Cell 9.6 10^3/uL (4.4-10.8)
[2019-02-04 20:41] LABS: Anion Gap 11 (5-15); Blood Urea Nitrogen 29 mg/dL (7-18); Carbon Dioxide 21 mmol/L (21-32); Chloride 100 mmol/L (98-107); Glucose 209 mg/dL (74-106); Potassium 3.8 mmol/L (3.5-5.1); Sodium 132 mmol/L (136-145)
[2019-02-04] MEDS ORDERED: LORazepam 2MG/ML-1ML VIAL IM ONE (20:45)
[2019-02-04 20:47] LABS: Alanine Aminotransferase 14 U/L (13-56); Alkaline Phosphatase 105 U/L (45-117); Aspartate Aminotransferase 12 U/L (15-37); BUN/Creatinine Ratio 23.8; Bilirubin, Total 0.2 mg/dL (0.2-1.0); Calcium 8.1 mg/dL (8.5-10.1); GFR African American 55 mL/min; GFR Non-African American 46 mL/min; Total Protein 6.7 g/dL (6.4-8.2)
[2019-02-04] MEDS ORDERED: LORazepam 2MG/ML-1ML VIAL IV ONE (21:15)
[2019-02-04] MEDS ORDERED: diphenhdrAMINE HCL 50 MG/1 ML VL IV ONE ×2 (22:00→22:30)
[2019-02-05 02:04] LABS: Urine Bacteria FEW /hpf (None Seen); Urine Blood TRACE /uL (Negative); Urine Specific Gravity 1.011 (1.001-1.035); Urine WBC 222 /hpf (0 - 5)
[2019-02-05 02:27] VITALS: BP 153/50
== END 2019-02-05 03:24 | disposition home or self-care (01) ==
LOC: EDBD 18:46 → ER 18:48
DX: R07.89 Other chest pain (principal); N39.0 Urinary tract infection, site not specified; G30.9 Alzheimer's disease, unspecified; F02.80 Dementia in other diseases classified elsewhere, unspecified severity, without behavioral disturbance, psychotic disturbance, mood disturbance, and anxiety; E11.9 Type 2 diabetes mellitus without complications; I10 Essential (primary) hypertension; F12.10 Cannabis abuse, uncomplicated; Z90.710 Acquired absence of both cervix and uterus; Z86.73 Personal history of transient ischemic attack (TIA), and cerebral infarction without residual deficits
CPT/HCPCS: 36415; 71045; 80053; 81001; 83880; 84484; 85025; 85379; 93005; 96374; 96375; 99284; J1200

== ENCOUNTER 2019-06-13 12:41 | Emergency (ER) | payer OTHER ==
[~2019-06-13] VITALS: Ht 170.2 cm; Wt 68.0 kg
[2019-06-13] MEDS ORDERED: SODIUM CHLORIDE 0.9% 1,000 ML IV ONE (13:12)
[2019-06-13 13:45] LABS: Basophils # (auto) 0.1 uL; Basophils % (auto) 0.9 % (0.0-2.0); Eosinophils # (auto) 0 uL; Eosinophils % (auto) 0.4 % (0.0-7.0); Hematocrit 34.2 % (36.0-46.0); Hemoglobin 11.5 g/dL (12.2-16.2); Lymphocytes # (auto) 1.8 uL; Lymphocytes % (auto) 23.4 % (10.0-50.0); Mean Corpuscular Hemoglobin 27.8 pg (28.0-32.0); Mean Corpuscular Hgb Conc. 33.7 g/dL (32.0-36.0); Mean Corpuscular Volume 82.6 fL (80.0-100.0); Monocytes # (auto) 0.8 uL; Monocytes % (auto) 10.6 % (0.0-12.0); Neutrophils # (auto) 4.9 uL; Neutrophils % (auto) 64.7 % (37.0-80.0); Platelet Count (auto) 342 10^3/uL (140-450); Red Blood Cells 4.14 10^6/uL (4.0-5.20); Red Cell Distribution Width 14.7 % (11.8-14.3); White Blood Cell 7.6 10^3/uL (4.4-10.8)
[2019-06-13 13:57] LABS: INR 0.99 (0.9-1.15); Partial Thromboplastin Time 24.9 sec (23.64-32.05)
[2019-06-13 14:00] LABS: Albumin 3.8 g/dL (3.4-5.0); Anion Gap 5 (5-15); Blood Urea Nitrogen 24 mg/dL (7-18); Calcium 8.2 mg/dL (8.5-10.1); Carbon Dioxide 25 mmol/L (21-32); Chloride 106 mmol/L (98-107); Potassium 3.7 mmol/L (3.5-5.1); Sodium 136 mmol/L (136-145)
[2019-06-13 14:08] LABS: Alanine Aminotransferase 29 U/L (13-56); Alkaline Phosphatase 138 U/L (45-117); Aspartate Aminotransferase 16 U/L (15-37); BUN/Creatinine Ratio 21.2; Bilirubin, Total 0.3 mg/dL (0.2-1.0); GFR African American 60 mL/min; GFR Non-African American 50 mL/min; Total Protein 7.3 g/dL (6.4-8.2)
[2019-06-13 14:23] LABS: Glucose 34 mg/dL (74-106)
[2019-06-13 15:11] VITALS: BP 142/66
[2019-06-13] MEDS ORDERED: LORazepam 2MG/ML-1ML VIAL IV ONE (17:00)
== END 2019-06-13 18:23 | disposition home or self-care (01) ==
LOC: EDBD 12:41 → ER 12:41
DX: E11.649 Type 2 diabetes mellitus with hypoglycemia without coma (principal); G30.9 Alzheimer's disease, unspecified; F02.80 Dementia in other diseases classified elsewhere, unspecified severity, without behavioral disturbance, psychotic disturbance, mood disturbance, and anxiety; R41.0 Disorientation, unspecified; I10 Essential (primary) hypertension; I48.91 Unspecified atrial fibrillation; Z90.710 Acquired absence of both cervix and uterus; Z90.89 Acquired absence of other organs; Z79.4 Long term (current) use of insulin; Z88.6 Allergy status to analgesic agent; Z88.8 Allergy status to other drugs, medicaments and biological substances
CPT/HCPCS: 36415; 71045; 80053; 82962; 84484; 85025; 85610; 85730; 93005; 96361; 96374; 99284; J2060; J7030

== ENCOUNTER 2019-08-07 13:33 | Emergency (ER) | payer OTHER ==
[~2019-08-07] VITALS: Ht 170.2 cm; Wt 65.8 kg
[2019-08-07] MEDS ORDERED: SODIUM CHLORIDE 0.9% 1,000 ML IVB ONE (15:13)
[2019-08-07 15:21] LABS: Basophils # (auto) 0.1 uL; Basophils % (auto) 1.1 % (0.0-2.0); Eosinophils # (auto) 0.1 uL; Eosinophils % (auto) 0.8 % (0.0-7.0); Hemoglobin 10.8 g/dL (12.2-16.2); Lymphocytes # (auto) 1.5 uL; Lymphocytes % (auto) 15.3 % (10.0-50.0); Mean Corpuscular Hemoglobin 28.7 pg (28.0-32.0); Mean Corpuscular Hgb Conc. 34.8 g/dL (32.0-36.0); Mean Corpuscular Volume 82.3 fL (80.0-100.0); Monocytes # (auto) 0.9 uL; Monocytes % (auto) 8.7 % (0.0-12.0); Neutrophils # (auto) 7.4 uL; Neutrophils % (auto) 74.1 % (37.0-80.0); Platelet Count (auto) 322 10^3/uL (140-450); Red Blood Cells 3.76 10^6/uL (4.0-5.20); Red Cell Distribution Width 14.3 % (11.8-14.3)
[2019-08-07 15:35] LABS: Alanine Aminotransferase 17 U/L (13-56); Albumin 3.2 g/dL (3.4-5.0); Anion Gap 9 (5-15); Aspartate Aminotransferase 8 U/L (15-37); BUN/Creatinine Ratio 17.6; Blood Urea Nitrogen 23 mg/dL (7-18); Calcium 8.2 mg/dL (8.5-10.1); Carbon Dioxide 24 mmol/L (21-32); Chloride 100 mmol/L (98-107); GFR African American 51 mL/min; GFR Non-African American 42 mL/min; Glucose 215 mg/dL (74-106); Potassium 4.3 mmol/L (3.5-5.1); Sodium 133 mmol/L (136-145)
[2019-08-07 15:40] LABS: Alkaline Phosphatase 129 U/L (45-117); Bilirubin, Total 0.3 mg/dL (0.2-1.0); Total Protein 6.7 g/dL (6.4-8.2)
[2019-08-07 15:51] LABS: INR 0.97 (0.9-1.15); Partial Thromboplastin Time 25.4 sec (23.64-32.05)
[2019-08-07] MEDS ORDERED: LORazepam 2MG/ML-1ML VIAL ONE (17:47)
[2019-08-07] MEDS ORDERED: LORazepam 2MG/ML-1ML VIAL IM ONE (18:00)
[2019-08-07 18:15] LABS: Urine Bacteria MANY /hpf (None Seen); Urine Blood 1+ /uL (Negative); Urine Budding Yeast MODERATE /hpf (None Seen); Urine WBC 3073 /hpf (0 - 5); Urine WBC Clumps PRESENT /hpf (None Seen)
[2019-08-07 18:21] LABS: Urine Specific Gravity 1.005 (1.001-1.035)
[2019-08-07] MEDS ORDERED: LEVOFLOXACIN 250MG 50 ML IV ONE (19:45)
[2019-08-07] MEDS ORDERED: LORazepam 2MG/ML-1ML VIAL IV ONE (21:30)
[2019-08-07 22:04] VITALS: BP 134/56
== END 2019-08-07 22:22 | disposition short-term general hospital (02) ==
LOC: ER 13:33 → EDBD 13:33 → ER 22:22
DX: S32.501G Unspecified fracture of right pubis, subsequent encounter for fracture with delayed healing (principal); S73.102A Unspecified sprain of left hip, initial encounter; M54.5 Low back pain; D64.9 Anemia, unspecified; N39.0 Urinary tract infection, site not specified; E87.1 Hypo-osmolality and hyponatremia; Z88.6 Allergy status to analgesic agent; Z88.8 Allergy status to other drugs, medicaments and biological substances; I10 Essential (primary) hypertension; E11.9 Type 2 diabetes mellitus without complications; Z90.710 Acquired absence of both cervix and uterus; Z90.89 Acquired absence of other organs; W19.XXXA Unspecified fall, initial encounter; Y93.89 Activity, other specified; Y99.8 Other external cause status; Y92.89 Other specified places as the place of occurrence of the external cause
CPT/HCPCS: 36415; 71045; 72131; 72192; 80053; 81001; 82962; 83735; 84484; 85025; 85610; 85730; 87077; 87186; 87205; 96365; 96375; 96376; 99285; J1956; J2060